=== PATIENT | female | born 2000 | race Hispanic/Latino ===

== ENCOUNTER 2022-07-18 14:34 | Emergency (ER) | payer OTHER ==
[~2022-07-18] VITALS: Ht 157.5 cm; Wt 71.7 kg
[2022-07-18] MEDS ORDERED: KETOROLAC TROMETHAMINE 30 MG/ML VIAL IM STA (14:56)
[2022-07-18] MEDS ORDERED: IBUPROFEN600 MG PO (15:42)
[2022-07-18] MEDS ORDERED: CYCLOBENZAPRINE10 MG PO (15:42)
== END 2022-07-18 16:40 | disposition home or self-care (01) ==
LOC: FSED 14:56
DX: M54.6 Pain in thoracic spine (principal)
CPT/HCPCS: 71046; 99282; J1885